=== PATIENT | female | born 1945 | race African-American/Black ===

== ENCOUNTER 2019-04-25 18:35 | Inpatient (IN) | payer MEDICAID, MEDICARE, OTHER ==
[~2019-04-25] VITALS: Ht 167.6 cm; Wt 72.1 kg
--- NOTE | 2019-04-25 18:50 | NUR ---
PT BIBA RA 860 From Home "Behavioral-Was trying to flood apt". Patient denies she was trying to flood the apt. Pt denies SI/HI. Pt endorses hearing voices saying "you are not liked and kill yourself." Pt AAOX4, VSS, Breathing even and unalabored on room air w/ nad. Pt connected to the monitor
--- NOTE | 2019-04-25 20:30 | NUR ---
PT RESTING IN BED, NAD NOTED. WILL CONTINUE TO MONITOR.
[2019-04-25 20:36] LABS: BASOPHILS # (AUTO) 0.1 /CMM (0.0-0.2); BASOPHILS % (AUTO) 0.7 % (0.0-2.0); EOSINOPHILS % (AUTO) 1.5 % (0.0-6.0); HEMATOCRIT 38 % (33-45); HEMOGLOBIN 12.5 g/dL (11.5-14.8); LYMPHOCYTES # (AUTO) 1.6 /CMM (0.8-4.8); LYMPHOCYTES % (AUTO) 16.7 % (20.0-44.0); MEAN CORPUSCULAR HGB CONC 33 g/dl (31.0-36.0); MEAN CORPUSCULAR VOLUME 98 fL (82-100); MONOCYTES # (AUTO) 0.9 /CMM (0.1-1.30); MONOCYTES % (AUTO) 9.9 % (2.0-12.0); NEUTROPHILS # (AUTO) 6.7 /CMM (1.8-8.9); NEUTROPHILS % (AUTO) 71.2 % (43.0-81.0); PLATELET COUNT (AUTO) 236 /CMM (150-450); RED BLOOD CELL COUNT(AUTO) 3.92 MIL/uL (4.0-5.2); WHITE BLOOD COUNT (AUTO) 9.4 K/uL (4.3-11.0)
--- NOTE | 2019-04-25 20:50 | NUR ---
PT AMBULATORY WITH STEADY GAIT, ATTEMPTED TO GIVE URINE. UNABLE TO OBTAIN SAMPLE.
[2019-04-25 21:05] LABS: ALANINE AMINOTRANSFERASE 20 U/L (12-78); ALBUMIN 3.5 g/dL (3.4-5.0); ALCOHOL, BLOOD < 3 mg/dL (0-0); ALKALINE PHOSPHATASE 71 U/L (46-116); ASPARTATE AMINOTRANSFERASE 17 U/L (15-37); BILIRUBIN,DIRECT 0.2 mg/dL (0.0-0.2); BILIRUBIN,TOTAL 0.6 mg/dL (0.2-1.0); CALCIUM, SERUM 10.6 mg/dL (8.5-10.1); CARBON DIOXIDE 27 mmol/L (21-32); CHLORIDE 106 mmol/L (98-107); CREATININE 1.1 mg/dL (0.6-1.3); GLUCOSE 97 mg/dL (74-106); POTASSIUM 3.8 mmol/L (3.5-5.1); SALICYLATE 3.6 mg/dL (2.8-20.0); SODIUM SERUM 141 mmol/L (136-145); UREA NITROGEN, BLOOD 31 mg/dL (7-18)
[2019-04-25 21:13] LABS: ACETAMINOPHEN < 2 ug/ml (10-30)
--- NOTE | 2019-04-25 21:55 | NUR ---
CALLED REFRIGERATING ENGINEER HEAD KALPESH GARCIAMAJAM
--- NOTE | 2019-04-25 22:03 | NUR ---
PT RESTING IN BED, NAD NOTED. WILL CONTINUE TO MONITOR.
[2019-04-25 22:28] LABS: APPEARANCE,URINE CLEAR (CLEAR); BILIRUBIN,URINE NEGATIVE (NEGATIVE); BLOOD, URINE LARGE Ery/uL (NEGATIVE); COLOR,URINE YELLOW (YELLOW); KETONES,URINE NEGATIVE (NEGATIVE); LEUKOCYTE ESTERASE ,URINE NEGATIVE (NEGATIVE); NITRITE, URINE NEGATIVE (NEGATIVE); PH,URINE 5.5 (5.0-8.0); PROTEIN,URINE 30 mg/dl (NEGATIVE); UGLUCOSE NEGATIVE (NEGATIVE); UROBILINOGEN,URINE 0.2 EU/dL (0.2)
[2019-04-25 22:41] LABS: BACTERIA,URINE Few /HPF (None Seen); RBC,URINE 51-80 /HPF (0-2); SQUAMOUS EPITHELIAL CELL,UR Few /HPF (None Seen)
--- NOTE | 2019-04-26 00:48 | NUR ---
RADHA ZAVALA ON WAY TO ASSESS PT.
--- NOTE | 2019-04-26 01:30 | NUR ---
PT RESTING IN BED, NAD NOTED. WILL CONTINUE TO MONITOR.
--- NOTE | 2019-04-26 02:41 | NUR ---
REPORT GIVEN TO KATIE NUNES FOR ANNETTE.
[2019-04-26] MEDS ORDERED: MAG HYDROX/AL HYDROX/SIMETH 30 ML UDC PO PRN (03:30)
[2019-04-26] MEDS ORDERED: MAGNESIUM HYDROXIDE 30 ML UDC PO PRN (03:30)
[2019-04-26] MEDS ORDERED: BLOOD SUGAR DIAGNOSTIC 1 EACH STRIP IN ONE (04:00)
--- NOTE | 2019-04-26 05:11 | NUR ---
GPS DIRECTOR SERVICE NOTES: RECEIVED PATIENT FROM [facility] ER DEPARTMENT. PT ARRIVED ON THIS UNIT AT 0315 VIA WHEELCHAIR ESCORTED BY A NURSE. PATIENT ADMITTED ON A 5150 HOLD FOR DTS AND GD. PER HOLD PT WAS BROUGHT IN BY AMBULANCE AFTER OTHER RESIDENT CALLED 911 DUE TO PT FLOODED HER APARTMENT. UPON FACE TO FACE ASSESSMENT PATIENT NOTED BEING CONFUSED, DISORGANIZED, DEPRESSED, AND COOPERATIVE. PATIENT IS CURRENTLY IN BED AWAKE SINGING TO HERSELF. BREATHING EVEN AND UNLABORED. NO S/S OF PAIN NOTED. PATIENT IS ALERT ORIENTED X1-2. PATIENT DENIES SI/HI AT THIS TIME. PT IS ABLE TO SIGN NECESSARY PAPERWORK AT THIS TIME. PT IS ADVISED OF HER HOLD AND PT HANDBOOK GIVEN. ALL CONTRABAND REMOVED AND STORED IN PT HALLWAY LOCKER. PT SKIN ASSESSMENT COMPLETE. PT ORIENTED TO ROOM, FLOOR, AND STAFF WITH ALL QUESTIONS ANSWERED. EDUCATED PT REGARDING CALL BRIZUELA. PT BED LOCKED, AND LOW. CONTINUE TO MONITOR PT Q15 MIN W/ THE HELP OF STAFF TO MAINTAIN SAFETY
[2019-04-26 05:42] VITALS: BP 145/79
[2019-04-26 08:00] VITALS: BP 134/75
[2019-04-26] MEDS: QUETIAPINE FUMARATE 25 MG TABLET PO SCH ×2 (13:00→16:19)
[2019-04-26 16:00] VITALS: BP 127/73
[2019-04-26] MEDS: TEMAZEPAM 7.5 MG CAPSULE PO PRN (22:15)
--- NOTE | 2019-04-27 05:32 | NUR ---
GPS RN NOTE PT A/O X1-2, CONFUSED, DISORIENTED, COOPERATIVE. SWELLING ON LEFT FOOT, MASS ON LEFT WRIST. SLEPT AFTER TAKING RESTORIL 7.5MG 1 TAB PO. ASSIST WITH AMBULATION. FALL PRECAUTION CONTINUED. BED IN LOWEST POSITION, BED ALARM ON. CALL LIGHT AT ARMS REACH. WILL CONTINUE TO MONITOR FOR MOO, SAFETY AND BEHAVIOR.
[2019-04-27 08:00] VITALS: BP 150/83
[2019-04-27] MEDS: QUETIAPINE FUMARATE 25 MG TABLET PO SCH ×2 (08:17→16:25)
[2019-04-27] MEDS: NICOTINE PATCH (7MG) 7 MG PATCH.TD24 TD SCH (12:50)
--- NOTE | 2019-04-27 15:50 | NUR ---
Family Contact: SW called the pts son, Cholo Marino ([phone]), and an individual answered the phone and stated that the number was wrong.
[2019-04-27 16:00] VITALS: BP 161/93
--- NOTE | 2019-04-27 16:27 | NUR ---
Initial Discharge Plan: Pt currently lives with her son Cholo at the address [address] [place] [id number]. Pts son's number is listed inaccurately. SW will work with the pt and the MD regarding appropriate discharge planning. SW will form a safe and proper discharge.
[2019-04-27 20:52] VITALS: BP 145/77
[2019-04-27] MEDS: TEMAZEPAM 7.5 MG CAPSULE PO PRN (22:05)
[2019-04-28 07:10] LABS: CALCIUM, SERUM 10.8 mg/dL (8.5-10.1); CREATININE 0.9 mg/dL (0.6-1.3); POTASSIUM 4.9 mmol/L (3.5-5.1)
[2019-04-28 07:45] LABS: BASOPHILS % (AUTO) 0.4 % (0.0-2.0); EOSINOPHILS % (AUTO) 1.9 % (0.0-6.0); HEMATOCRIT 40 % (33-45); HEMOGLOBIN 13.1 g/dL (11.5-14.8); LYMPHOCYTES # (AUTO) 1.8 /CMM (0.8-4.8); LYMPHOCYTES % (AUTO) 20.5 % (20.0-44.0); MEAN CORPUSCULAR HGB CONC 33 g/dl (31.0-36.0); MEAN CORPUSCULAR VOLUME 98 fL (82-100); MONOCYTES # (AUTO) 0.8 /CMM (0.1-1.30); NEUTROPHILS # (AUTO) 6.1 /CMM (1.8-8.9); NEUTROPHILS % (AUTO) 68.2 % (43.0-81.0); PLATELET COUNT (AUTO) 243 /CMM (150-450); RED BLOOD CELL COUNT(AUTO) 4.11 MIL/uL (4.0-5.2); WHITE BLOOD COUNT (AUTO) 8.9 K/uL (4.3-11.0)
[2019-04-28 08:00] VITALS: BP 150/93
[2019-04-28] MEDS: QUETIAPINE FUMARATE 25 MG TABLET PO SCH ×2 (08:46→16:45)
[2019-04-28] MEDS: NICOTINE PATCH (7MG) 7 MG PATCH.TD24 TD SCH (09:03)
[2019-04-28 16:00] VITALS: BP 145/99
[2019-04-28 20:02] VITALS: BP 118/63
[2019-04-29] MEDS: clonazePAM 0.5 MG TABLET PO PRN ×2 (03:50→10:46)
[2019-04-29 08:00] VITALS: BP 135/98
[2019-04-29] MEDS: NICOTINE PATCH (7MG) 7 MG PATCH.TD24 TD SCH (08:37)
[2019-04-29] MEDS: QUETIAPINE FUMARATE 25 MG TABLET PO SCH ×2 (08:37→16:59)
[2019-04-29] MEDS: ACETAMINOPHEN 325 MG TABLET PO PRN (10:17)
--- NOTE | 2019-04-29 10:20 | NUR ---
RN NOTE: PT C/O HEADACHE. MEDICATED TYLENOL 650MG PO .
--- NOTE | 2019-04-29 10:20 | NUR ---
UR Note: SALMA called ([phone]) at [facility] and conducted a review on her voicemail requesting additional authorization.
--- NOTE | 2019-04-29 10:46 | NUR ---
RN NOTE: PT'S BP ELEVATED AT 135/98 WITH PULSE OF 75. PT C/O ANXIETY AND MEDICATED WITH CLONAZEPAM 0.5 MG PO.
--- NOTE | 2019-04-29 15:22 | NUR ---
UR Note: ([phone]) at [place] called the SW and asked for additional information regarding the pts clinical. SW presented the information and the briefcase sewer authorized 5 additional days with review due on 05/04/19.
[2019-04-29 16:00] VITALS: BP 119/68
[2019-04-29 20:13] VITALS: BP 127/81
[2019-04-29 20:16] VITALS: BP 127/81
[2019-04-29] MEDS: TEMAZEPAM 7.5 MG CAPSULE PO PRN ×2 (21:32)
--- NOTE | 2019-04-30 | NUR ---
WINE PASTEURIZER NOTES PT SLEEPING COMFORTABLY IN BED AFTER SLEEP MEDICATION GIVEN WITHOUT ANY ACUTE DISTRESS NOTED. KEPT HER WARM AND COMFORTABLE AT ALL TIMES. WILL CONTINUE MONITORING Q 15 MINUTES FOR SAFETY.
--- NOTE | 2019-04-30 06:52 | NUR ---
websphere architect notes pt woke up and started doing her morning routine. no signs of any agitation noted. interact appropriately. asking for some juice. stable rios night and slept well. no signs .sitting on the chair and kept her warm and comfortable at all times. will endorse to am nurse for continuity of care.
--- NOTE | 2019-04-30 07:33 | NUR ---
rn initial notes pt awake out of bed to chair, conversant, compliant, no significant behavioral changes noted at this time. safety ensured. denies pain. will monitor
[2019-04-30 08:00] VITALS: BP 119/95
[2019-04-30] MEDS: NICOTINE PATCH (7MG) 7 MG PATCH.TD24 TD SCH (09:23)
[2019-04-30] MEDS: QUETIAPINE FUMARATE 25 MG TABLET PO SCH ×3 (09:23→16:30)
[2019-04-30] MEDS: ESCITALOPRAM OXALATE (10 MG) 10 MG TABLET PO SCH (12:17)
--- NOTE | 2019-04-30 13:49 | NUR ---
UR Note: Liz ([phone]), [place] upper caser, called the SW and stated that she would like to set up some aftercare appointments for the pt and will call the SW back.
--- NOTE | 2019-04-30 13:51 | NUR ---
UR Note: Sandra ([phone]), [place] manager of case management, contacted the SW and stated that she will be following the pt after she is discharged and would like the SW to pass along her contact information.
--- NOTE | 2019-04-30 14:36 | NUR ---
SS Group Note: SW went to patient's room to invite patient to attend today's support group at 1:00pm regarding holidays sensory activity and gratefulness being held in the activities room. Patient presented laying on her bed sleeping. SW attempted to wake patient but they remained sleeping.
[2019-04-30 16:00] VITALS: BP 166/85
--- NOTE | 2019-04-30 18:43 | NUR ---
RN CLOSING NOTES PT IN HER ROOM, ISOLATIVE MOST OF THE TIME, REFUSED TO PARTICIPATE WITH GROUP ACTIVITIES. COMPLIANT WITH MEDS. DENIES PAIN. NO SIGNIFICANT CHANGE IN BEHAVIOR NOTED. NO SIGNS OF SUICIDAL IDEATION NOTED. WILL ENDORSE TO NEST SHIFT RN FOR CONTINUITY OF CARE IN STABLE CONDITION
[2019-04-30 21:41] VITALS: BP 103/66
[2019-05-01] MEDS: TEMAZEPAM 7.5 MG CAPSULE PO PRN ×2 (01:36→22:43)
[2019-05-01 08:00] VITALS: BP 149/79
[2019-05-01] MEDS: ESCITALOPRAM OXALATE (10 MG) 10 MG TABLET PO SCH (08:37)
[2019-05-01] MEDS: NICOTINE PATCH (7MG) 7 MG PATCH.TD24 TD SCH (08:38)
[2019-05-01] MEDS: QUETIAPINE FUMARATE 25 MG TABLET PO SCH ×3 (08:38→16:32)
--- NOTE | 2019-05-01 14:50 | NUR ---
SS Group Note 05/01/19: SW to invite patient to attend today's support group at 1:00pm regarding Mindfulness in the activities room. Patient refused, stating, I just want to rest sweetheart. SW encouraged patient to attend and informed pt. that it would be a relaxation technique. Pt. refused and SW respected patient's self-determination.
[2019-05-01 16:00] VITALS: BP 101/54
[2019-05-01 20:08] VITALS: BP 140/70
--- NOTE | 2019-05-01 22:46 | NUR ---
PT REQUESTED FOR SLEEP MEDICATION, RESTORIL 7.5 MG ADMINISTERED PO AT [phone]. WILL CONTINUE TO MONITOR.
[2019-05-02 08:00] VITALS: BP 151/80
[2019-05-02] MEDS: NICOTINE PATCH (7MG) 7 MG PATCH.TD24 TD SCH (08:19)
[2019-05-02] MEDS: QUETIAPINE FUMARATE 25 MG TABLET PO SCH ×3 (08:19→18:05)
[2019-05-02] MEDS: ESCITALOPRAM OXALATE (10 MG) 10 MG TABLET PO SCH (08:19)
[2019-05-02 16:00] VITALS: BP 138/76
--- NOTE | 2019-05-02 19:30 | NUR ---
GPS/RN NOTE: AWAKE, ALERT, ORIENTED X2, INITIATES INTERACTION. 2 CRANBERRY JUICE GIVEN PER REQUEST NOW. WILL MONITOR FOR SAFETY AND BEHAVIOR.
[2019-05-02 20:00] VITALS: BP 135/95
[2019-05-02] MEDS: TEMAZEPAM 7.5 MG CAPSULE PO PRN (20:19)
--- NOTE | 2019-05-02 20:19 | NUR ---
GPS/RN NOTE: REQUESTED FOR SLEEPING PILL, RESTORIL 7.5 MG CAP PO GIVEN FOR INSOMNIA.
--- NOTE | 2019-05-03 04:09 | NUR ---
GPS/RN NOTE: TALKING TO SELF, RESPONDING TO INTERNAL STIMULI. PATIENT STATED, " YOU HAVE NOTHING TO DO WITH THAT, I WILL KILL YOU."
[2019-05-03 07:05] LABS: BASOPHILS # (AUTO) 0.1 /CMM (0.0-0.2); BASOPHILS % (AUTO) 0.7 % (0.0-2.0); EOSINOPHILS % (AUTO) 1.7 % (0.0-6.0); HEMATOCRIT 41 % (33-45); HEMOGLOBIN 13.4 g/dL (11.5-14.8); MEAN CORPUSCULAR HGB CONC 33 g/dl (31.0-36.0); MEAN CORPUSCULAR VOLUME 98 fL (82-100); MONOCYTES # (AUTO) 0.9 /CMM (0.1-1.30); MONOCYTES % (AUTO) 10.9 % (2.0-12.0); NEUTROPHILS # (AUTO) 4.8 /CMM (1.8-8.9); NEUTROPHILS % (AUTO) 61.7 % (43.0-81.0); PLATELET COUNT (AUTO) 351 /CMM (150-450); RED BLOOD CELL COUNT(AUTO) 4.21 MIL/uL (4.0-5.2); WHITE BLOOD COUNT (AUTO) 7.8 K/uL (4.3-11.0)
[2019-05-03 07:47] LABS: CALCIUM, SERUM 10.8 mg/dL (8.5-10.1); CREATININE 0.9 mg/dL (0.6-1.3); MAGNESIUM 2.1 mg/dL (1.8-2.4); PHOSPHORUS 3.2 mg/dL (2.5-4.9); POTASSIUM 4.3 mmol/L (3.5-5.1)
[2019-05-03 08:00] VITALS: BP 144/85
[2019-05-03] MEDS: QUETIAPINE FUMARATE 25 MG TABLET PO SCH ×3 (08:15→16:05)
[2019-05-03] MEDS: ESCITALOPRAM OXALATE (10 MG) 10 MG TABLET PO SCH (08:15)
[2019-05-03] MEDS: ACETAMINOPHEN 325 MG TABLET PO PRN (08:21)
[2019-05-03] MEDS: NICOTINE PATCH (7MG) 7 MG PATCH.TD24 TD SCH (08:21)
[2019-05-03 16:00] VITALS: BP 109/64
[2019-05-03 19:51] VITALS: BP 143/78
[2019-05-03] MEDS: TEMAZEPAM 7.5 MG CAPSULE PO PRN (21:36)
--- NOTE | 2019-05-04 06:37 | NUR ---
PT REFUSED PICTURES/SKIN ASSESSMENT
[2019-05-04 08:00] VITALS: BP 140/76
[2019-05-04] MEDS: QUETIAPINE FUMARATE 25 MG TABLET PO SCH ×2 (08:14→12:39)
[2019-05-04] MEDS: ESCITALOPRAM OXALATE (10 MG) 10 MG TABLET PO SCH (08:15)
[2019-05-04] MEDS: NICOTINE PATCH (7MG) 7 MG PATCH.TD24 TD SCH (08:17)
--- NOTE | 2019-05-04 09:00 | NUR ---
Family Contact: SW has asked the pt for the number for her son many times and has spoken to the unit secretaries asking if the pt received any calls from her son. SW was unable to receive a different number and the pt stated that the number listed was accurate. SALMA informed her that she will keep trying that number even though a woman had answered and stated that she did not know who Cholo Marino was.
--- NOTE | 2019-05-04 09:15 | NUR ---
Family Contact: SW called the pts son, Cholo Marino ([phone]), and was unable to make contact. SW left a voicemail stating that the reason for the call was regarding a discharge of a pt and that the SW would like a call back to discuss the details.
--- NOTE | 2019-05-04 10:18 | NUR ---
UR Note: SALMA called Liz ([phone]), [place] manager case management, and left her a voicemail to inform her that the pt is being discharged today and is in need of those aftercare appointments.
--- NOTE | 2019-05-04 13:40 | NUR ---
Family Contact: SW called the pts son, Cholo Marino ([phone]), and left a voicemail stating that the SW did not receive a call back but the unnamed pt had verified her address multiple times and stated how she would get into her apartment. SW stated that she was going to be discharged in about one hour and would like a call back as soon as possible.
--- NOTE | 2019-05-04 14:38 | NUR ---
Discharge Note: Pt was discharged home to [address] [place] [address]. Pt was transported via taxi at 3pm. Pts son Cholo was not contacted due to the inaccurate phone number. Upon discharge, the pt appeared to be in a euthymic mood and presented with a calm affect. Pt denied both suicidal/homicidal ideation as well as auditory/visual hallucinations. Pt was referred to receive psychiatric services at [facility] [place] [address] [place] [address]; ; and a fax of records was sent to: . Pt has an intake appointment set for at 2pm. Pt was also referred to [facility] for health services located at [address] [place] [id number]; .
--- NOTE | 2019-05-04 14:42 | NUR ---
UR Note: SALMA called ([phone]), case technician, at [facility] and conducted a discharge clinical on her voicemail.
[2019-05-04 16:00] VITALS: BP 111/59
--- NOTE | 2019-05-04 16:10 | NUR ---
DIRECTOR OF MARKET INTELLIGENCE NOTE: HOLD DISCONTINUED. PT DISCHARGED HOME TO [address] [place] [id number] VIA [facility]. PT LIVES WITH SON. UNABLE TO CONTACT SON D/T WRONG NUMBER LISTED. PT IN STABLE CONDITION TO DISCHARGE. VS: , 98, 98.0 AND 20. AFFECT IS CALM, COOPERATIVE AND PLEASANT. PT A+OX3. MEDICAL AND PSYCHIATRIC FOLLOW UP INFORMATION GIVEN TO PT ALONG WITH PRESCRIPTIONS. PT VERBALIZED UNDERSTANDING. PT DIAGNOSIS EDUCATION PROVIDED TO PT. HOSPITAL ID BAND REMOVED. PT ESCORTED TO [facility] VIA WHEELCHAIR.
--- NOTE | 2019-05-06 10:04 | NUR ---
[facility] Contact: SW received a call from a [facility] SW ([phone]) who stated that the pt is currently in their hospital because she was found on the streets wandering by the police. Miguel Angel MARSH informed her about all of the details regarding the case and how she asked the pt multiple times and that she went through the notes of the previous admission where the pts sons number was listed and the SW called that number. She stated that she will call the SW back if she has any questions.
--- NOTE | 2019-05-18 15:12 | NUR ---
Substance Abuse Follow Up: Pt was readmitted to inpatient level of care and is therefore excused from the substance abuse follow up.
== END 2019-05-04 16:05 | disposition home or self-care (01) | DRG 885 ==
LOC: ER 18:38 → GPS 04-26 02:28
PROVIDERS: ADMIT Psychiatry & Neurology Psychiatry; ATTEND Nurse Practitioner Acute Care
DX: F29 Unspecified psychosis not due to a substance or known physiological condition (principal); N39.0 Urinary tract infection, site not specified; R45.851 Suicidal ideations; F12.10 Cannabis abuse, uncomplicated; G31.84 Mild cognitive impairment of uncertain or unknown etiology
CPT/HCPCS: 36415; 80048-TC; 80061-TC; 80076-TC; 80305; 81000-TC; 82962-TC; 83735-TC; 84100-TC; 85025-TC; 87086-TC; 97116-TC; 97530-TC; G0480

== ENCOUNTER 2021-01-28 13:48 | Emergency (ER) | payer MEDICARE, OTHER ==
[~2021-01-28] VITALS: Ht 177.8 cm; Wt 79.4 kg
[2021-01-28 14:04] VITALS: BP 154/75
--- NOTE | 2021-01-28 14:20 | NUR ---
PT SEEN AND EXAMINED BY .
[2021-01-28] MEDS ORDERED: KETOROLAC TROMETHAMINE INJ 60 MG/2 ML VIAL IM ONE (14:30)
--- NOTE | 2021-01-28 14:30 | NUR ---
GARMENT MANUFACTURING SUPERVISOR AT BEDSIDE FOR XRAY.
[2021-01-28] MEDS ORDERED: KETOROLAC TROMETHAMINE INJ 30 MG/ML VIAL ONE (14:35)
--- NOTE | 2021-01-28 14:41 | NUR ---
TORADOL 30MG IM GIVEN AT RD.
[2021-01-28] MEDS ORDERED: IBUP-1957 PO (14:53)
--- NOTE | 2021-01-28 15:12 | NUR ---
CALLED PT SENA GOSS FOR PT RECEPTION MANAGER
--- NOTE | 2021-01-28 15:18 | NUR ---
Patient discharged to home in stable condition. Written and verbal after care instructions given. Patient verbalizes understanding of instruction.
== END 2021-01-28 15:18 | disposition home or self-care (01) ==
LOC: ER 14:03
DX: M25.571 Pain in right ankle and joints of right foot (principal); R22.41 Localized swelling, mass and lump, right lower limb; I10 Essential (primary) hypertension
CPT/HCPCS: 73610; 96372; 99283; J1885

== ENCOUNTER 2022-06-29 14:50 | Inpatient (IN) | payer MEDICARE, OTHER ==
[~2022-06-29] VITALS: Ht 172.7 cm; Wt 91.6 kg
[~2022-06-29 14:50] MED LIST: IBUP-1957 PO
--- NOTE | 2022-06-29 15:15 | NUR ---
[id number] for generalized weakness, was at the bank, unable to get out of car tachycardic, and low o2 sats in the field. on 2L via [place] fishing captain. PLACED IN BED, RESPONDING TO VERBAL STIMULI. BREATHING UNLABORED SATURATING AT 94% WITH 2LIT O2 VIA NC.
[2022-06-29] MEDS ORDERED: CEFEPIME 1 GM in IV D5W 50 ML IV ONE (15:30)
[2022-06-29] MEDS ORDERED: IV NS 0.9% 500 ML BAG IV ONE (15:30)
[2022-06-29] MEDS ORDERED: DEXAMETHASONE SOD PHOSPHATE 10 MG/ML VIAL IV ONE (15:30)
--- NOTE | 2022-06-29 15:50 | NUR ---
FIGHTING VEHICLE INFANTRYMAN AT BEDSIDE
--- NOTE | 2022-06-29 16:23 | NUR ---
PATIENT TAKEN TO CT VIA SALBADOR
[2022-06-29] MEDS ORDERED: DEXAMETHASONE SOD PHOSPHATE 10 MG/ML VIAL ONE (16:26)
[2022-06-29 17:13] LABS: LYMPHOCYTES # (AUTO) 0.6 K/uL (0.8-4.8); LYMPHOCYTES % (AUTO) 3.6 % (20.0-44.0); MEAN CORPUSCULAR HGB CONC 32 g/dl (31.0-36.0); MEAN CORPUSCULAR VOLUME 97 fL (82-100); MONOCYTES # (AUTO) 1.5 K/uL (0.1-1.30); MONOCYTES % (AUTO) 8.4 % (2.0-12.0); NEUTROPHILS # (AUTO) 15.7 K/uL (1.8-8.9); RED BLOOD CELL COUNT(AUTO) 6.36 MIL/uL (4.0-5.2); WHITE BLOOD COUNT (AUTO) 17.8 K/uL (4.3-11.0)
[2022-06-29 17:22] LABS: HEMOGLOBIN 19.4 g/dL (11.5-14.8)
[2022-06-29 17:25] LABS: HEMATOCRIT 61 % (33-45)
[2022-06-29 17:28] LABS: ALANINE AMINOTRANSFERASE 29 U/L (12-78); ALBUMIN 3.7 g/dL (3.4-5.0); ALKALINE PHOSPHATASE 73 U/L (46-116); ASPARTATE AMINOTRANSFERASE 42 U/L (15-37); BILIRUBIN,DIRECT 0.3 mg/dL (0.0-0.2); BILIRUBIN,TOTAL 0.8 mg/dL (0.2-1.0); CALCIUM, SERUM 11.3 mg/dL (8.5-10.1); CARBON DIOXIDE 17 mmol/L (21-32); CHLORIDE 91 mmol/L (98-107); CREATININE 2.8 mg/dL (0.6-1.3); GLUCOSE 94 mg/dL (74-106); SODIUM SERUM 133 mmol/L (136-145)
[2022-06-29 17:39] LABS: UREA NITROGEN, BLOOD 88 mg/dL (7-18)
--- NOTE | 2022-06-29 17:56 | NUR ---
URINE SAMPLE SENT TO LAB
[2022-06-29] MEDS ORDERED: IV NS 0.9% 1,000 ML BAG IV ONE (18:00)
[2022-06-29] MEDS ORDERED: PIPERACILLIN /TAZOBACTAM 3.375 G in IV D5W 50 ML IV ONE (18:00)
[2022-06-29 18:20] LABS: BILIRUBIN,URINE 1+ (NEGATIVE); COLOR,URINE YELLOW (YELLOW); LEUKOCYTE ESTERASE ,URINE TRACE (NEGATIVE); NITRITE, URINE NEGATIVE (NEGATIVE); PH,URINE 5.5 (5.0-8.0); PROTEIN,URINE 1+ mg/dl (NEGATIVE); UGLUCOSE NEGATIVE (NEGATIVE)
--- NOTE | 2022-06-29 18:25 | NUR ---
CONTACTED NURSING INNER TUBE CUTTER FOR MIDLINE
[2022-06-29 18:30] LABS: PLATELET COUNT (AUTO) 209 K/uL (150-450)
[2022-06-29 18:32] LABS: BAND % (MANUAL) 6 % (0.0-5.0); LYMPHOCYTES % (MANUAL) 8 % (16-48); MONOCYTES % (MANUAL) 9 % (0-11.0); NEUTROPHILS % (MANUAL) 77 (42-76)
--- NOTE | 2022-06-29 18:33 | NUR ---
DR. MEHTA ON PHONE WITH DR. SU
[2022-06-29 18:41] LABS: BACTERIA,URINE RARE /HPF (None Seen); FINE GRANULAR CASTS,URINE Few /LPF (None Seen); RBC,URINE 51-80 /HPF (0-2); URINE AMORPHOUS URATE Few /HPF (None Seen)
[2022-06-29 18:42] LABS: HYALINE CASTS, URINE Few /LPF (None Seen); MUCUS,URINE Many /LPF (None Seen)
[2022-06-29] MEDS ORDERED: MAGNESIUM HYDROXIDE 30 ML UDC PO PRN (19:30)
[2022-06-29] MEDS ORDERED: ONDANSETRON HCL/PF 4 MG/2 ML VIAL IVP PRN (19:30)
[2022-06-29] MEDS: IV NS 0.9% 1,000 ML IV SCH ×2 (19:30→23:29)
[2022-06-29] MEDS ORDERED: Z GUARD REMEDY 4 OZ OINT TP PRN (19:30)
[2022-06-29] MEDS ORDERED: ACETAMINOPHEN 325 MG TABLET PO PRN (19:30)
[2022-06-29] MEDS: ASPIRIN EC 81 MG TABLET.DR PO SCH ×3 (19:30→23:53)
[2022-06-29] MEDS ORDERED: MAG HYDROX/AL HYDROX/SIMETH 30 ML UDC PO PRN (19:30)
--- NOTE | 2022-06-29 19:43 | NUR ---
covid swab done and sent to lab
--- NOTE | 2022-06-29 20:00 | NUR ---
ASSISTANT PROFESSOR OF CRIMINAL JUSTICE AT PT'S BEDSIDE
--- NOTE | 2022-06-29 21:21 | NUR ---
BED 112-1
--- NOTE | 2022-06-29 21:31 | NUR ---
REPORT GIVEN TO JUDIE NUNES ROOM 112-1 FOR ANNETTE
--- NOTE | 2022-06-29 22:15 | NUR ---
RN OPENING NOTE PT RECEIVED FROM [facility] AND [facility]. PT A&OX1, RESPONSIVE TO NAME AND ABLE TO FOLLOW COMMANDS. SKIN IS COLD TO THE TOUCH AND INTACT. NO WOUNDS NOTED. RESPIRATIONS EVEN AND UNLABORED ON 4 LPM NC. DENIES SOB AND CHEST PAIN. NO IV ACCESS AT THIS TIME. ER STATED THAT AN ORDER FOR ML INSERTION HAS BEEN PLACED. BILAT UPPER EXTREMITIES ARE INFILTRATED FROM PREVIOUS IVS. AFFECTED EXTREMITIES ARE NOW ELEVATED WITH COOL COMPRESS. MACE INTACT AND DRAINING APPROPRIATELY. PT IS POOR HISTORIAN AND STATES THAT HER ONLY MEDICAL HX IS HTN. NO ACUTE SIGNS OF DISTRESS. BED LOCKED AND AT LOWEST LEVEL WITH 2 RAILS UP. CALL LIGHT WITHIN REACH.
[2022-06-29 23:12] VITALS: BP 129/73
--- NOTE | 2022-06-29 23:20 | NUR ---
RN NOTE PROVIDER ATTEMPTED MIDLINE INSERTION BUT UNSUCCESSFUL.
[2022-06-30] VITALS: BP 130/75
--- NOTE | 2022-06-30 00:36 | NUR ---
RN NOTE MULTIPLE IVS ATTEMPTED WITH REACTOR OPERATOR BUT UNSUCCESSFUL. GAS COLLECTION SYSTEM OPERATOR AWARE AND WILL CONTACT MD FOR NEXT COURSE OF ACTION.
[2022-06-30] MEDS: IV NS 0.9% 1,000 ML IV SCH ×3 (00:40→15:12)
--- NOTE | 2022-06-30 00:40 | NUR ---
RN NOTE NOE 24 G IV ESTABLISHED. WILL MONITOR FOR SI/SX OF INFILTRATION.
--- NOTE | 2022-06-30 01:59 | NUR ---
RN NOTE MD INFORMED THAT PT IS LETHARGIC AND DIFFICULT TO AROUSE WITH NO LARGE BORE IV. MD STATED THAT THERE IS NOTHING ELSE TO DO FOR PT. STATES THAT WE CAN CONTACT ED MD FOR IV ACCESS IF NEEDED.
--- NOTE | 2022-06-30 02:16 | NUR ---
RN NOTE PT AROUSABLE TO LIGHT TOUCH. PACS AND PVCS NOTED ON GEOLOGICAL ENGINEERING TEACHER. NS INFUSING AT 100 ML/HR.
[2022-06-30 04:00] VITALS: BP 141/88
--- NOTE | 2022-06-30 07:05 | NUR ---
RN CLOSING NOTE PT SLEEPING BUT AROUSABLE TO LIGHT TOUCH. SKIN IS COOL TO TOUCH. RESPIRATIONS EVEN AND UNLABORED ON 4 LPM NC. NOE 24G INTACT AND INFUSING NS AT 100 ML/HR. MACE INTACT AND DRAINING APPROPRIATELY. NO ACUTE SIGNS OF DISTRESS. BED LOCKED AND AT LOWEST LEVEL WITH 2 RAILS UP. CALL LIGHT WITHIN REACH.
--- NOTE | 2022-06-30 07:29 | NUR ---
OPENING NOTE PATIENT IS RESTING COMFORTABLY IN BED, AWAKE, ALERT, ORIENTEDX1 (NAME), NO SIGNS OF IN DISTRESS, UNLABORED BREATHING ON 02-4L/MIN VIA N/C, BED IN LOW POSITION, CALL LIGHT WITHIN REACH
[2022-06-30] MEDS: ASPIRIN EC 81 MG TABLET.DR PO SCH (07:51)
[2022-06-30 08:00] VITALS: BP 116/75
[2022-06-30] MEDS: CEFTRIAXONE 1 G in IV D5W 50 ML IV SCH (08:51)
[2022-06-30] MEDS ORDERED: ASPI-1420 PO (09:43)
[2022-06-30] MEDS ORDERED: QUET25TA PO (09:43)
[2022-06-30] MEDS ORDERED: DOCU100C58 PO (09:43)
[2022-06-30] MEDS ORDERED: PANT40TA49 PO (09:43)
[2022-06-30] MEDS ORDERED: CARV6.252 PO (09:43)
--- NOTE | 2022-06-30 09:54 | NUR ---
CALLED LAB DEPARTMENT REGARDING CHEMISTRY, THEY SAID, PATIENT IS A HARD STICK, AND THEY WILL SEND SOMEONE ELSE NOW.
[2022-06-30] MEDS: ENSURE ENLIVE CHOC 237 ML CAN PO SCH ×3 (10:06→16:22)
[2022-06-30] MEDS: PANTOPRAZOLE 40 MG TABLET.DR PO SCH (10:43)
[2022-06-30] MEDS: CARVEDILOL 6.25 MG TABLET PO SCH ×2 (10:56→16:22)
[2022-06-30] MEDS ORDERED: ASPIRIN EC 81 MG TABLET.DR PO SCH (11:00)
--- NOTE | 2022-06-30 11:01 | NUR ---
INFORMED DR. CASTANEDA REGARDING K-3.0 FROM YESTERDAY. DRAW BLOOD FROM MIDLINE FOR BLOOD WORK.
--- NOTE | 2022-06-30 11:08 | NUR ---
CALLED CARDIOLOGY DEPARTMENT REGARDING ECHOCARDIOGRAM TODAY BUT NO REPLY.
[2022-06-30 11:11] LABS: BASOPHILS % (AUTO) 0.1 % (0.0-2.0); EOSINOPHILS % (AUTO) 0.1 % (0.0-6.0); HEMATOCRIT 51 % (33-45); HEMOGLOBIN 16.1 g/dL (11.5-14.8); LYMPHOCYTES # (AUTO) 0.7 K/uL (0.8-4.8); LYMPHOCYTES % (AUTO) 4.4 % (20.0-44.0); MEAN CORPUSCULAR HGB CONC 32 g/dl (31.0-36.0); MEAN CORPUSCULAR VOLUME 95 fL (82-100); MONOCYTES # (AUTO) 1.4 K/uL (0.1-1.30); MONOCYTES % (AUTO) 9.1 % (2.0-12.0); NEUTROPHILS # (AUTO) 13.6 K/uL (1.8-8.9); NEUTROPHILS % (AUTO) 86.3 % (43.0-81.0); PLATELET COUNT (AUTO) 178 K/uL (150-450); RED BLOOD CELL COUNT(AUTO) 5.33 MIL/uL (4.0-5.2); WHITE BLOOD COUNT (AUTO) 15.8 K/uL (4.3-11.0)
[2022-06-30] MEDS ORDERED: POTASSIUM CHLORIDE 20 MEQ TAB.PRT.SR PO ONE (11:30)
[2022-06-30 11:37] LABS: CALCIUM, SERUM 9.2 mg/dL (8.5-10.1); CARBON DIOXIDE 30 mmol/L (21-32); CHLORIDE 96 mmol/L (98-107); CREATININE 1.5 mg/dL (0.6-1.3); GLUCOSE 108 mg/dL (74-106); MAGNESIUM 2.3 mg/dL (1.8-2.4); PHOSPHORUS 3.4 mg/dL (2.5-4.9); POTASSIUM 5.3 mmol/L (3.5-5.1); SODIUM SERUM 134 mmol/L (136-145); UREA NITROGEN, BLOOD 68 mg/dL (7-18)
[2022-06-30 11:49] LABS: THYROID STIMULATING HORMONE 0.862 uIU/mL (0.358-3.74)
[2022-06-30 12:00] VITALS: BP 109/71
--- NOTE | 2022-06-30 12:32 | NUR ---
INFORMED DR SU REGARDING K-5.3 TODAY VIA TEXT.
[2022-06-30 14:03] LABS: MAGNESIUM 2.4 mg/dL (1.8-2.4); PHOSPHORUS 3.2 mg/dL (2.5-4.9)
[2022-06-30 16:00] VITALS: BP 108/58
[2022-06-30] MEDS: DOCUSATE SODIUM 100 MG CAPSULE PO SCH (16:21)
--- NOTE | 2022-06-30 17:20 | NUR ---
URINE PROFILE/URINE SODIUM,RANDOM/CREATININE (URINE) COLLECTED.
[2022-06-30 18:22] LABS: CREATININE, URINE 82.9 MG/DL (30.0-125.0)
--- NOTE | 2022-06-30 18:26 | NUR ---
CLOSING NOTE PATIENT IS RESTING COMFATBLE IN BED, NO SIGNS OF IN DISTRESS, NO COMPLAINT OF PAIN, VITAL SIGNS ARE STABLE, MACE CATHETER IN PLACE PATENT, WILLOW MIDLINE IN PLACE TODAY, IV FLUIDS INFUSING WELL, SIDE RAILS UP, BED IN LOW POSITION, CALL LIGHT WITHIN REACH.
--- NOTE | 2022-06-30 19:30 | NUR ---
SHOP WORKER OPENING NOTES RECEIVED PT RESTING IN BED AWAKE, EATING DINNER. ON O2 VIA NC 4L WITH NO SIGNS OF DISTRESS, NO COMPLAINT OF PAIN. MACE CATHETER IN PLACE PATENT. WILLOW MIDLINE PATENT AND INTACT, RUNNING NS @ 100ML/HR. SAFETY PRECAUTION IN PLACE: BED LOCKED AND IN LOWEST POSITION, SIDE RAILS UP X3, CALL LIGHT AND TRAY TABLE WITHIN REACH. WILL CONTINUE TO MONITOR AND ASSIST.
[2022-06-30 20:00] VITALS: BP 124/78
[2022-06-30 20:26] LABS: BILIRUBIN,URINE NEGATIVE (NEGATIVE); COLOR,URINE YELLOW (YELLOW); LEUKOCYTE ESTERASE ,URINE NEGATIVE (NEGATIVE); NITRITE, URINE NEGATIVE (NEGATIVE); PROTEIN,URINE NEGATIVE (NEGATIVE); UGLUCOSE NEGATIVE (NEGATIVE); UROBILINOGEN,URINE 0.2 EU/dL (0.2)
[2022-06-30] MEDS: QUETIAPINE FUMARATE 25 MG TABLET PO SCH (21:36)
[2022-06-30 23:18] LABS: BACTERIA,URINE None seen /HPF (None Seen)
[2022-06-30 23:19] LABS: URIC ACID CRYSTALS,URINE Moderate /HPF (None Seen)
[2022-06-30 23:20] LABS: SQUAMOUS EPITHELIAL CELL,UR None Seen /HPF (None Seen)
[2022-07-01] VITALS: BP 119/79
[2022-07-01] MEDS: IV NS 0.9% 1,000 ML IV SCH ×2 (01:31→10:31)
[2022-07-01 04:00] VITALS: BP 102/66
[2022-07-01 06:06] LABS: EOSINOPHILS % (AUTO) 0.3 % (0.0-6.0); HEMATOCRIT 47 % (33-45); HEMOGLOBIN 15.1 g/dL (11.5-14.8); LYMPHOCYTES % (AUTO) 13.6 % (20.0-44.0); MEAN CORPUSCULAR HGB CONC 32 g/dl (31.0-36.0); MEAN CORPUSCULAR VOLUME 97 fL (82-100); MONOCYTES % (AUTO) 10.4 % (2.0-12.0); NEUTROPHILS % (AUTO) 75.7 % (43.0-81.0); PLATELET COUNT (AUTO) 145 K/uL (150-450); RED BLOOD CELL COUNT(AUTO) 4.87 MIL/uL (4.0-5.2); WHITE BLOOD COUNT (AUTO) 10.7 K/uL (4.3-11.0)
[2022-07-01 06:07] LABS: LYMPHOCYTES # (AUTO) 1.4 K/uL (0.8-4.8); MONOCYTES # (AUTO) 1.1 K/uL (0.1-1.30); NEUTROPHILS # (AUTO) 8.1 K/uL (1.8-8.9)
--- NOTE | 2022-07-01 06:40 | NUR ---
REGIONAL CONSTRUCTION MANAGER CLOSING NOTES PT SLEEPING IN BED AT THIS TIME. A/O X3, ABLE TO MAKE NEEDS KNOWN. STABLE ON O2 VIA NC 3L WITH NO SIGNS OF DISTRESS. NO C/O PAIN AT THIS TIME. ON TELE MONITOR READING SR WITH PAC'S @ 80 BPM. MACE CATHETER DRAINED 400 ML OF CLEAR, YELLOW URINE. WILLOW MIDLINE PATENT AND INTACT, RUNNING NS @ 100 ML/HR. ALL CARE PROVIDED AND MEDS TOLERATED WELL. SAFETY PRECAUTIONS MAINTAINED: BED LOCKED AND IN LOWEST POSITION, SIDE RAILS UP X3, CALL LIGHT AND TRAY TABLE WITHIN REACH. WILL ENDORSE ANNETTE TO DAY SHIFT NURSE.
--- NOTE | 2022-07-01 07:18 | NUR ---
OPENING NOTE PATIENT IS RESTING COMFORTABLY IN BED, AWAKE, ALERT, ORIENTEDX1 (NAME), NO SIGNS OF IN DISTRESS, UNLABORED BREATHING ON 02-3L/MIN VIA N/C, BED IN LOW POSITION, CALL LIGHT WITHIN REACH
[2022-07-01] MEDS: ENSURE ENLIVE CHOC 237 ML CAN PO SCH ×3 (07:39→16:23)
[2022-07-01 08:00] VITALS: BP 121/60
[2022-07-01] MEDS: PANTOPRAZOLE 40 MG TABLET.DR PO SCH (08:23)
[2022-07-01] MEDS: ASPIRIN EC 81 MG TABLET.DR PO SCH (08:23)
[2022-07-01] MEDS: DOCUSATE SODIUM 100 MG CAPSULE PO SCH ×2 (08:24→16:23)
[2022-07-01] MEDS: CARVEDILOL 6.25 MG TABLET PO SCH ×2 (08:24→16:43)
[2022-07-01] MEDS: CEFTRIAXONE 1 G in IV D5W 50 ML IV SCH (08:48)
[2022-07-01 10:51] LABS: ALBUMIN 2.4 g/dL (3.4-5.0); BILIRUBIN,TOTAL 0.5 mg/dL (0.2-1.0); CALCIUM, SERUM 9.5 mg/dL (8.5-10.1); CREATININE 1.3 mg/dL (0.6-1.3); MAGNESIUM 2.3 mg/dL (1.8-2.4); PHOSPHORUS 1.7 mg/dL (2.5-4.9); POTASSIUM 4.3 mmol/L (3.5-5.1); TOTAL PROTEIN, SERUM 5.4 g/dL (6.4-8.2)
[2022-07-01 12:00] VITALS: BP 118/78
[2022-07-01] MEDS ORDERED: Sodium Phosphate 15 MMOL in IV NS 0.9% 245 ML IV SCH (14:00)
[2022-07-01 16:00] VITALS: BP 112/66
--- NOTE | 2022-07-01 18:08 | NUR ---
CLOSING NOTE PATIENT IS RESTING COMFORTABLY IN BED, NO SIGNS OF IN DISTRESS, NO COMPLAINT OF PAIN, VITAL SIGNS ARE STABLE, MACE CATHETER IN PLACE PATENT, WILLOW MIDLINE IN PLACE TODAY, IV FLUIDS INFUSING WELL, SIDE RAILS UP, BED IN LOW POSITION, CALL LIGHT WITHIN REACH.
[2022-07-01 20:00] VITALS: BP 133/74
--- NOTE | 2022-07-01 20:00 | NUR ---
SAFETY INSPECTOR NOTE PT IN BED AWAKE. A/O X 3, NO SOB, NO DISTRESS OR DISCOMFORT NOTED. DENIES PAIN. ON 2L O2 VIA N/C O2 SAT 98%. ON TELE SR HR 80. IVF NS INFUSING AT 100 ML/HR WILLOW MIDLINE. NO S/S OF INFILTRATION NOTED. KEPT HER DRY AND CLEAN. ALL NEEDS ATTENDED. SIDE RAILS UP X 3 AND CALL LIGHT WITHIN REACH. VSS. CONTINUE TO MONITOR HER.
[2022-07-01] MEDS: QUETIAPINE FUMARATE 25 MG TABLET PO SCH (21:44)
[2022-07-02] VITALS: BP 122/64
[2022-07-02] MEDS: IV NS 0.9% 1,000 ML IV SCH ×3 (01:06→14:16)
[2022-07-02 04:00] VITALS: BP 135/59
--- NOTE | 2022-07-02 06:33 | NUR ---
TRIMMER HELPER NOTE PT IN BED ASLEEP, NO DISTRESS OR DISCOMFORT NOTED. DENIES PAIN. IVF NS INFUSING AT 100 ML/HR, NO S/S OF INFILTRATION NOTED. ALL NEEDS ATTENDED. ON TELE SR . SIDE RAILS UP X 2. CALL LIGHT WITHIN REACH. WILL ENDORSE TO DAY SHIFT NURSE FOR CONTINUE TO CARE.
[2022-07-02 08:00] VITALS: BP 124/75
[2022-07-02 08:27] LABS: BASOPHILS % (AUTO) 0.2 % (0.0-2.0); EOSINOPHILS % (AUTO) 1.5 % (0.0-6.0); HEMATOCRIT 46 % (33-45); HEMOGLOBIN 14.6 g/dL (11.5-14.8); LYMPHOCYTES # (AUTO) 2.3 K/uL (0.8-4.8); LYMPHOCYTES % (AUTO) 23.7 % (20.0-44.0); MEAN CORPUSCULAR HGB CONC 32 g/dl (31.0-36.0); MEAN CORPUSCULAR VOLUME 96 fL (82-100); MONOCYTES # (AUTO) 1.1 K/uL (0.1-1.30); MONOCYTES % (AUTO) 11.9 % (2.0-12.0); NEUTROPHILS % (AUTO) 62.7 % (43.0-81.0); PLATELET COUNT (AUTO) 156 K/uL (150-450); RED BLOOD CELL COUNT(AUTO) 4.79 MIL/uL (4.0-5.2); WHITE BLOOD COUNT (AUTO) 9.5 K/uL (4.3-11.0)
[2022-07-02 08:48] LABS: CALCIUM, SERUM 9.9 mg/dL (8.5-10.1); CREATININE 1.1 mg/dL (0.6-1.3); POTASSIUM 3.6 mmol/L (3.5-5.1)
[2022-07-02] MEDS: ENSURE ENLIVE CHOC 237 ML CAN PO SCH ×3 (08:53→16:43)
[2022-07-02] MEDS: DOCUSATE SODIUM 100 MG CAPSULE PO SCH ×2 (08:58→16:35)
[2022-07-02] MEDS: PANTOPRAZOLE 40 MG TABLET.DR PO SCH (08:58)
[2022-07-02] MEDS: CARVEDILOL 6.25 MG TABLET PO SCH ×2 (08:59→16:43)
[2022-07-02] MEDS: ASPIRIN EC 81 MG TABLET.DR PO SCH (09:00)
[2022-07-02] MEDS: CEFTRIAXONE 1 G in IV D5W 50 ML IV SCH (09:10)
[2022-07-02] MEDS: METOPROLOL TARTRATE INJ 5 MG/5 ML AMPUL IVP PRN ×10 (11:30→12:15)
[2022-07-02] MEDS ORDERED: METOPROLOL TARTRATE INJ 5 MG/5 ML AMPUL ONE ×3 (11:52→12:08)
[2022-07-02] MEDS ORDERED: CT SWABBABLE VALVE TRANS SET 1 EA INFUS.SET MC ONE (11:53)
[2022-07-02] MEDS ORDERED: IOHEXOL-350 100 ML VIAL IV ONE (11:53)
[2022-07-02] MEDS ORDERED: IV NS 0.9% 250 ML IV ONE (11:53)
[2022-07-02] MEDS ORDERED: NITROGLYCERIN 0.4 MG/TAB BOTTLE ONE (11:53)
[2022-07-02 12:00] VITALS: BP 109/53
[2022-07-02] MEDS ORDERED: NITROGLYCERIN 0.4 MG/TAB BOTTLE SL ONE (12:00)
[2022-07-02 16:00] VITALS: BP 139/61
--- NOTE | 2022-07-02 18:44 | NUR ---
RN CLOSING NOTE PATIENT SLEEPING IN BED, NO SIGNS OF IN DISTRESS OR SOB NO COMPLAINT OF PAIN, VITAL SIGNS ARE STABLE, MACE CATHETER IN PLACE PATENT, WILLOW MIDLINE IN PLACE TODAY, IV FLUIDS INFUSING WELL, SIDE RAILS UP, BED IN LOW POSITION, CALL LIGHT WITHIN REACH. WILL ENDORSE THE PATIENT TO THE CARRIER DRIVER NURSE FOR ANNETTE.
[2022-07-02 19:42] LABS: BILIRUBIN,URINE NEGATIVE (NEGATIVE); COLOR,URINE YELLOW (YELLOW); LEUKOCYTE ESTERASE ,URINE NEGATIVE (NEGATIVE); NITRITE, URINE NEGATIVE (NEGATIVE); PROTEIN,URINE NEGATIVE (NEGATIVE); UGLUCOSE NEGATIVE (NEGATIVE); UROBILINOGEN,URINE 0.2 EU/dL (0.2)
[2022-07-02 20:00] VITALS: BP 137/75
--- NOTE | 2022-07-02 20:00 | NUR ---
ANODIZER NOTES RECEIVED PT IN BED, ASLEEP, EASILY AROUSABLE. NO SOB, NO DISTRESS NOTED. ON 2L O2 VIA NC, SATURATION 99%. ON TELE MONITOR SR 80. IVF INFUSING NS @75ML/HR ON WILLOW ML, INTACT AND PATENT, NO S/S OF INFILTRATION. NOE #24G IV SITE, SL, INTACT AND PATENT. FC INTACT AND PATENT, DRAINING YELLOW URINE. KEPT DRY AND CLEAN, REPOSITION FOR COMFORT. SAFETY MEASURES IMPLEMENTED, SR UP X3, BED LOCKED AND IN LOWEST POSITION. CALL LIGHT WITHIN REACH. WILL CONT TO MONITOR PT.
[2022-07-02 20:14] LABS: RBC,URINE 21-50 /HPF (0-2); WBC,URINE 0-2 /HPF (0-3)
[2022-07-02 20:15] LABS: BACTERIA,URINE None seen /HPF (None Seen); SQUAMOUS EPITHELIAL CELL,UR 0-2 /HPF (None Seen)
--- NOTE | 2022-07-02 20:41 | NUR ---
TEACHER'S AIDE NOTES PHOS. LEVEL 1.7 INFORMED THE MD. PER MD, PHOS WAS ALREADY ORDERED AND GIVEN ON 07/01/22. ALSO REVERIFIED WITH PHARMACY, MED WAS GIVEN ON 07/01/22 BY DES ALLISON. NNO AT THIS TIME.
[2022-07-02] MEDS: QUETIAPINE FUMARATE 25 MG TABLET PO SCH (21:13)
[2022-07-03] VITALS: BP 143/72
[2022-07-03] MEDS: IV NS 0.9% 1,000 ML IV SCH ×2 (03:24→16:24)
--- NOTE | 2022-07-03 03:24 | NUR ---
TD RN NOTES PT NOTED WITH L BUTTOCK EXCORIATION, PINK IN COLOR, NO S/S OF INFX. RENDERED WITH DD. TURN AND REPOS. PT, KEPT CLEAN AND DRY. WOUND CONSULT ORDERED.
[2022-07-03 04:00] VITALS: BP 120/67
--- NOTE | 2022-07-03 06:30 | NUR ---
WOODEN BOX MAKER NOTES PT IN BED, SLEEPING, EASILY AROUSABLE. NO SOB, NO ACUTE RESP DISTRESS. AFEBRILE. ON O2 2LPM VIA NC, WELL ANISA. ON TELE SR. IVF INFUSING NS @ 75ML/HR ON WILLOW ML. ALL NEEDS MET. ALL DUE MEDICATIONS GIVEN ORDERED. FC IN PLACED, DRAINING YELLOW URINE. SAFETY MEASURES IMPLEMENTED. WILL ENDORSE TO AM NURSE
[2022-07-03 08:00] VITALS: BP 109/57
[2022-07-03] MEDS: ENSURE ENLIVE CHOC 237 ML CAN PO SCH ×3 (08:23→16:53)
[2022-07-03] MEDS: ASPIRIN EC 81 MG TABLET.DR PO SCH (08:24)
[2022-07-03] MEDS: DOCUSATE SODIUM 100 MG CAPSULE PO SCH ×2 (08:24→16:23)
[2022-07-03] MEDS: PANTOPRAZOLE 40 MG TABLET.DR PO SCH (08:24)
[2022-07-03] MEDS: CARVEDILOL 6.25 MG TABLET PO SCH ×2 (08:25→16:23)
[2022-07-03] MEDS: CEFTRIAXONE 1 G in IV D5W 50 ML IV SCH (08:57)
[2022-07-03 12:00] VITALS: BP 110/53
[2022-07-03 16:00] VITALS: BP 126/63
--- NOTE | 2022-07-03 18:46 | NUR ---
RN CLOSING NOTE PATIENT SLEEPING IN BED, NO SIGNS OF IN DISTRESS OR SOB NO COMPLAINT OF PAIN, VITAL SIGNS ARE STABLE, MACE CATHETER IN PLACE PATENT, WILLOW MIDLINE IN PLACE RUNNING NS 75ML/HR INFUSING WELL, SIDE RAILS UP, BED IN LOW POSITION, CALL LIGHT WITHIN REACH. WILL ENDORSE THE PATIENT TO THE PAYROLL CLERK NURSE FOR ANNETTE.
--- NOTE | 2022-07-03 19:10 | NUR ---
noc rn note received patient in bed with eyes closed, easy to arouse. a/ox3. no s/s of apparent distress in 2lpm of o2 via nc. denies pain at this time. IV ns running @75mls/hr. arana draining clear, dark yellow urine. call light within reach. safety in place. will continue with patient's plan of care.
[2022-07-03 20:00] VITALS: BP 114/70
[2022-07-03] MEDS: QUETIAPINE FUMARATE 25 MG TABLET PO SCH (21:43)
[2022-07-04 04:00] VITALS: BP 102/58
[2022-07-04] MEDS: IV NS 0.9% 1,000 ML IV SCH (07:03)
--- NOTE | 2022-07-04 07:03 | NUR ---
noc rn note scheduled IV ns hanged late. bag was still running.
--- NOTE | 2022-07-04 07:08 | NUR ---
noc rn closing note patient in bed with eyes closed, easy to arouse. no s/s of apparent distress on 2lpm of o2 via nc. denies any pain at this time. IV NS running @75mls/hr. all needs attended. all scheduled medications administered. safety in place. will endorse to morning shift rn for continuity of patient care.
--- NOTE | 2022-07-04 07:20 | NUR ---
PULL OVER MACHINE OPERATOR OPENING NOTES Received pt awake in bed AOx3. No complaints of pain or discomfort at this time. Pt is on NC 2L and tolerating it well. IV access on WILLOW midline and NOE 24G SL patent and intact. HOB elevated to pts comfort. Siderails up x2. Call light within reach. Will continue current plan of care.
[2022-07-04] MEDS: ENSURE ENLIVE CHOC 237 ML CAN PO SCH ×3 (08:06→16:41)
[2022-07-04] MEDS: CEFTRIAXONE 1 G in IV D5W 50 ML IV SCH (08:11)
[2022-07-04] MEDS: PANTOPRAZOLE 40 MG TABLET.DR PO SCH (08:15)
[2022-07-04] MEDS: DOCUSATE SODIUM 100 MG CAPSULE PO SCH ×2 (08:15→16:41)
[2022-07-04] MEDS: ASPIRIN EC 81 MG TABLET.DR PO SCH (08:15)
[2022-07-04] MEDS: CARVEDILOL 6.25 MG TABLET PO SCH ×2 (08:15→16:41)
--- NOTE | 2022-07-04 10:23 | NUR ---
LOSS PREVENTION ANALYST NOTES Physical therapy done and pt was able to walk 10 feet. Tolerated PT well.
[2022-07-04] MEDS ORDERED: CEPH250C PO (12:15)
[2022-07-04] MEDS ORDERED: CARV6.252 PO (12:15)
--- NOTE | 2022-07-04 13:10 | NUR ---
FERRIS WHEEL ATTENDANT NOTES Called to [facility] and gave discharge report to Felipa NUNES.
[2022-07-04 16:00] VITALS: BP 128/68
[2022-07-04 16:41] VITALS: BP 128/68
--- NOTE | 2022-07-04 18:22 | NUR ---
PARAPROFESSIONAL AIDE CLOSING NOTES All due meds and tx given as ordered. Pt tolerated everything well. Pt currently on RA and tolerating it well. IV access on LAC 20G SL patent and intact. HOB elevated to pts comfort. Siderails up at all times x2. Call light within reach. Will endorse to oncoming nurse.
--- NOTE | 2022-07-04 18:26 | NUR ---
AVIATION SURVIVAL TECHNICIAN NOTES All due meds and tx given as ordered. Pt tolerated everything well. All needs attended to. Pt is currently on 2L NC and tolerating it well. IV access on NOE 24G and WILLOW ML patent and intact. HOB elevated to pts comfort. Siderails up at all times x2. Call light within reach. Will continue to monitor.
--- NOTE | 2022-07-04 19:07 | NUR ---
TRANSCRIPTION COORDINATOR NOTES [facility] d/t pt no continuing IV ATB. Transferred from [facility] to [facility] safely.
== END 2022-07-04 19:56 | DRG 682 ==
LOC: ER 14:56 → TELE1 21:32 → MEDSG1 07-03 10:04
PROVIDERS: ADMIT Internal Medicine; ATTEND Nurse Practitioner Acute Care
DX: N17.0 Acute kidney failure with tubular necrosis (principal); G93.41 Metabolic encephalopathy; I21.A1 Myocardial infarction type 2; N39.0 Urinary tract infection, site not specified; E87.1 Hypo-osmolality and hyponatremia; E87.20 Acidosis, unspecified; F03.92 Unspecified dementia, unspecified severity, with psychotic disturbance; Z20.822 Contact with and (suspected) exposure to COVID-19; I10 Essential (primary) hypertension; E87.6 Hypokalemia; D75.1 Secondary polycythemia; D75.9 Disease of blood and blood-forming organs, unspecified; F32.A Depression, unspecified; F41.9 Anxiety disorder, unspecified; Z79.899 Other long term (current) drug therapy; Z79.82 Long term (current) use of aspirin; E87.5 Hyperkalemia; E86.0 Dehydration; N28.1 Cyst of kidney, acquired; W19.XXXA Unspecified fall, initial encounter; Y92.9 Unspecified place or not applicable
CPT/HCPCS: 36415; 70450-TC; 71045-TC; 75574; 76770-TC; 80048-TC; 80053-TC; 80061-TC; 80076-TC; 81001; 82533; 82570-TC; 82962-TC; 83605-TC; 83735-TC; 83880; 84100-TC; 84300-TC; 84439-TC; 84443-TC; 84484-TC; 85025-TC; 85730-TC; 87040-TC; 87081-TC; 87086-TC; 93307-TC; 97110-TC; 97112-TC; 97116-TC; 97530-TC; A6403; A9563; G0378; J0692; J0696; J1100; J2543; J3490; J7030; J7040; J7050; J7060; Q9967

== ENCOUNTER 2024-05-11 13:16 | Inpatient (IN) | payer MEDICARE, OTHER ==
[~2024-05-11] VITALS: Ht 172.7 cm; Wt 86.2 kg
[~2024-05-11 13:16] MED LIST changes: +ASPI-1420 PO; +CARV6.252 PO; +CEPH250C PO; +DOCU100C58 PO; -IBUP-1957 PO; +PANT40TA49 PO; +QUET25TA PO
[2024-05-11 15:06] LABS: BASOPHILS % (AUTO) 0.4 % (0.0-2.0); EOSINOPHILS % (AUTO) 0.3 % (0.0-6.0); HEMATOCRIT 50 % (33-45); LYMPHOCYTES # (AUTO) 1.8 K/uL (0.8-4.8); LYMPHOCYTES % (AUTO) 16.6 % (20.0-44.0); MEAN CORPUSCULAR HEMOGLOBIN 31 PG (26.0-33.0); MEAN CORPUSCULAR HGB CONC 32 g/dl (31.0-36.0); MEAN CORPUSCULAR VOLUME 96 fL (82-100); MONOCYTES # (AUTO) 0.9 K/uL (0.1-1.30); MONOCYTES % (AUTO) 7.7 % (2.0-12.0); NEUTROPHILS # (AUTO) 8.4 K/uL (1.8-8.9); PLATELET COUNT (AUTO) 253 K/uL (150-450); RED BLOOD CELL COUNT(AUTO) 5.21 MIL/uL (4.0-5.2); RED CELL DISTRIBUTION WIDTH 14.1 % (11.5-15.0); WHITE BLOOD COUNT (AUTO) 11.1 K/uL (4.3-11.0)
[2024-05-11 15:22] LABS: CALCIUM, SERUM 10.3 mg/dL (8.5-10.1); CARBON DIOXIDE 33 mmol/L (21-32); CHLORIDE 105 mmol/L (98-107); CREATININE 1.2 mg/dL (0.6-1.3); GLUCOSE 101 mg/dL (74-106); POTASSIUM 4.7 mmol/L (3.5-5.1); SODIUM SERUM 140 mmol/L (136-145); UREA NITROGEN, BLOOD 14 mg/dL (7-18)
[2024-05-11 15:23] LABS: INR 0.99 (0.91-1.10); PARTIAL THROMBOPLASTIN TIME 28.5 SEC (24.3-34.3); PROTHROMBIN TIME 10.5 SECS (9.2-11.1)
[2024-05-11 15:28] LABS: APPEARANCE,URINE Clear (CLEAR); BILIRUBIN,URINE Negative (NEGATIVE); BLOOD, URINE Trace-intact Ery/uL (NEGATIVE); COLOR,URINE YELLOW (YELLOW); KETONES,URINE Negative (NEGATIVE); LEUKOCYTE ESTERASE ,URINE Negative (NEGATIVE); NITRITE, URINE Negative (NEGATIVE); PROTEIN,URINE 30 mg/dl (NEGATIVE); UGLUCOSE Negative (NEGATIVE); UROBILINOGEN,URINE 0.2 EU/dL (0.2)
[2024-05-11 15:36] LABS: ALANINE AMINOTRANSFERASE 20 U/L (12-78); ALBUMIN 3.7 g/dL (3.4-5.0); ALKALINE PHOSPHATASE 96 U/L (46-116); ASPARTATE AMINOTRANSFERASE 17 U/L (15-37); BILIRUBIN,DIRECT 0.1 mg/dL (0.0-0.2); BILIRUBIN,TOTAL 0.3 mg/dL (0.2-1.0); NT-PRO BNP 157 pg/mL (0-125); TOTAL PROTEIN, SERUM 7.8 g/dL (6.4-8.2)
[2024-05-11 15:51] LABS: ACETAMINOPHEN 0 ug/ml (10-30); ALCOHOL, BLOOD < 3 mg/dL (0-10); SALICYLATE 3.2 mg/dL (2.8-20.0)
[2024-05-11 16:02] LABS: ADD URINE CULTURE NO; BACTERIA,URINE Few /HPF (None Seen); SQUAMOUS EPITHELIAL CELL,UR Few /HPF (None Seen)
[2024-05-11] MEDS ORDERED: ACET-2605 PO (16:39)
[2024-05-11 17:59] LABS: AMPHETAMINE, URINE NEGATIVE (NEGATIVE); BARBITURATE, URINE NEGATIVE (NEGATIVE); BENZODIAZEPINE, URINE NEGATIVE (NEGATIVE); CANNABINOID, URINE POSITIVE (NEGATIVE); COCCAINE, URINE NEGATIVE (NEGATIVE); OPIATE, URINE NEGATIVE (NEGATIVE); PHENCYCLIDINE SCREEN,URINE NEGATIVE (NEGATIVE)
[2024-05-11] MEDS ORDERED: MAGNESIUM HYDROXIDE 30 ML UDC PO PRN (18:30)
[2024-05-11] MEDS ORDERED: TEMAZEPAM 7.5 MG CAPSULE PO PRN ×2 (18:30)
[2024-05-11] MEDS ORDERED: ACETAMINOPHEN 325 MG TABLET PO PRN (18:30)
[2024-05-11] MEDS ORDERED: LORAZEPAM 0.5 MG TABLET PO PRN ×2 (18:30)
[2024-05-11] MEDS ORDERED: MAG HYDROX/AL HYDROX/SIMETH 30 ML UDC PO PRN (18:30)
[2024-05-11 21:14] VITALS: BP 148/60; TEMP 98.3; O2SAT 95
[2024-05-12 07:40] LABS: CHOLESTEROL 194 mg/dL (<200); HDL CHOLESTEROL 67 mg/dL (40-60); LDL 89 mg/dL (0-99); TRIGLYCERIDES 89 mg/dL (30-150)
[2024-05-12 07:41] LABS: ALANINE AMINOTRANSFERASE 12 U/L (12-78); ALKALINE PHOSPHATASE 88 U/L (46-116); ASPARTATE AMINOTRANSFERASE 14 U/L (15-37); BILIRUBIN,TOTAL 0.5 mg/dL (0.2-1.0); CALCIUM, SERUM 9.8 mg/dL (8.5-10.1); CARBON DIOXIDE 29 mmol/L (21-32); CHLORIDE 106 mmol/L (98-107); CREATININE 1.1 mg/dL (0.6-1.3); GLUCOSE 130 mg/dL (74-106); POTASSIUM 4.4 mmol/L (3.5-5.1); SODIUM SERUM 140 mmol/L (136-145); TOTAL PROTEIN, SERUM 6.8 g/dL (6.4-8.2); UREA NITROGEN, BLOOD 16 mg/dL (7-18)
[2024-05-12 08:00] VITALS: BP 136/72; TEMP 98; O2SAT 98
[2024-05-12] MEDS: SERTRALINE HCL 25 MG TABLET PO SCH (12:57)
[2024-05-12 16:00] VITALS: BP 142/67; TEMP 98.8; O2SAT 98
[2024-05-12 20:42] VITALS: BP 153/91; TEMP 96.8; O2SAT 95
[2024-05-12] MEDS: QUETIAPINE FUMARATE 25 MG TABLET PO SCH (21:36)
[2024-05-13 08:00] VITALS: BP 131/75; TEMP 97.7; O2SAT 96
[2024-05-13 16:00] VITALS: BP 169/91; TEMP 97.9; O2SAT 96
[2024-05-13 20:00] VITALS: BP 154/95; TEMP 97.6; O2SAT 97
[2024-05-13 22:00] VITALS: BP 154/95
[2024-05-14 08:00] VITALS: BP 123/87; TEMP 98.2; O2SAT 99
[2024-05-14 16:00] VITALS: BP 130/83; TEMP 98.4; O2SAT 95
[2024-05-14 20:00] VITALS: BP 143/85; TEMP 98.1; O2SAT 95
[2024-05-15 08:00] VITALS: BP_SYST 117; BP_SYST 128; BP_DIAS 73; BP_DIAS 85; TEMP 98.2; TEMP 98.6; O2SAT 93; O2SAT 98
[2024-05-15] MEDS ORDERED: ATORVASTATIN 40 MG TABLET PO SCH (12:30)
[2024-05-15] MEDS: ASPIRIN 81 MG TAB.CHEW PO SCH (12:53)
[2024-05-15 16:00] VITALS: BP 120/75; TEMP 99.1; O2SAT 94
[2024-05-15 20:00] VITALS: BP 147/75; TEMP 98.7; O2SAT 97
[2024-05-15] MEDS: ATORVASTATIN 40 MG TABLET PO SCH (21:39)
[2024-05-16 08:00] VITALS: BP 129/78; TEMP 98.6; O2SAT 95
[2024-05-16 16:00] VITALS: BP 134/85; TEMP 98.6; O2SAT 92
[2024-05-16 20:44] VITALS: BP 139/84; TEMP 98.2; O2SAT 93
[2024-05-17 07:58] VITALS: BP 142/93; TEMP 97.8; O2SAT 96
[2024-05-17 16:00] VITALS: BP 133/81; TEMP 97.8; O2SAT 94
[2024-05-17 20:43] VITALS: BP 130/82; TEMP 97.8; O2SAT 98
[2024-05-18 08:00] VITALS: BP 146/76; TEMP 98.7; O2SAT 96
[2024-05-18 16:00] VITALS: BP 139/89; TEMP 98.7; O2SAT 96
[2024-05-18 20:44] VITALS: BP 134/71; TEMP 98.4; O2SAT 95
[2024-05-19 08:00] VITALS: BP 118/72; TEMP 98.7; O2SAT 96
[2024-05-19 16:00] VITALS: BP 124/76; TEMP 98.1; O2SAT 96
[2024-05-19 20:49] VITALS: BP 129/86; TEMP 98; O2SAT 96
[2024-05-20 08:00] VITALS: BP 101/75; TEMP 98.5; O2SAT 88
[2024-05-20 16:00] VITALS: BP 133/91; TEMP 98.1; O2SAT 97
[2024-05-20 20:00] VITALS: BP 124/62; TEMP 98.3; O2SAT 97
[2024-05-21 08:00] VITALS: BP 126/90; TEMP 98.1; O2SAT 93
[2024-05-21 16:00] VITALS: BP 133/68; TEMP 98.6; O2SAT 95
[2024-05-21 20:00] VITALS: BP 134/81; TEMP 97.9; O2SAT 100
[2024-05-22 07:41] LABS: BASOPHILS % (AUTO) 0.5 % (0.0-2.0); EOSINOPHILS # (AUTO) 0.1 K/uL (0.0-0.7); EOSINOPHILS % (AUTO) 0.8 % (0.0-6.0); HEMATOCRIT 49 % (33-45); LYMPHOCYTES # (AUTO) 2.2 K/uL (0.8-4.8); LYMPHOCYTES % (AUTO) 22.3 % (20.0-44.0); MEAN CORPUSCULAR HEMOGLOBIN 31 PG (26.0-33.0); MEAN CORPUSCULAR HGB CONC 33 g/dl (31.0-36.0); MEAN CORPUSCULAR VOLUME 95 fL (82-100); MONOCYTES # (AUTO) 0.8 K/uL (0.1-1.30); NEUTROPHILS # (AUTO) 6.7 K/uL (1.8-8.9); NEUTROPHILS % (AUTO) 68.4 % (43.0-81.0); PLATELET COUNT (AUTO) 205 K/uL (150-450); RED BLOOD CELL COUNT(AUTO) 5.18 MIL/uL (4.0-5.2); WHITE BLOOD COUNT (AUTO) 9.8 K/uL (4.3-11.0)
[2024-05-22 08:00] VITALS: BP 135/90; TEMP 97.7; O2SAT 96
[2024-05-22 08:04] LABS: CALCIUM, SERUM 10.6 mg/dL (8.5-10.1); CARBON DIOXIDE 27 mmol/L (21-32); CHLORIDE 107 mmol/L (98-107); CREATININE 1.1 mg/dL (0.6-1.3); GLUCOSE 96 mg/dL (74-106); POTASSIUM 4.7 mmol/L (3.5-5.1); SODIUM SERUM 141 mmol/L (136-145); UREA NITROGEN, BLOOD 22 mg/dL (7-18)
[2024-05-22] MEDS: ENSURE ENLIVE CHOC 237 ML CAN PO SCH (08:36)
[2024-05-22 16:00] VITALS: BP 122/80; TEMP 98.4; O2SAT 96
[2024-05-22 20:00] VITALS: BP 107/66; TEMP 98.3; O2SAT 96
[2024-05-23 08:00] VITALS: BP 135/69; TEMP 97.8; O2SAT 98
[2024-05-23 16:00] VITALS: BP 132/80; TEMP 97.8; O2SAT 94
[2024-05-23 20:26] VITALS: BP 102/60; TEMP 97.8; O2SAT 94
[2024-05-24 08:00] VITALS: BP 130/75; TEMP 97.9; O2SAT 93
[2024-05-24 15:50] VITALS: BP 128/66; TEMP 97.8; O2SAT 95
[2024-05-24 20:35] VITALS: BP 137/86; TEMP 97.9; O2SAT 98
[2024-05-25 08:00] VITALS: BP 123/76; TEMP 98.7; O2SAT 98
[2024-05-25 16:00] VITALS: BP 111/82; TEMP 98.9; O2SAT 98
[2024-05-25 21:13] VITALS: BP 153/84; TEMP 98.2; O2SAT 97
[2024-05-26 08:00] VITALS: BP 120/69; TEMP 97.7; O2SAT 96
[2024-05-26 16:00] VITALS: BP 112/70; TEMP 97.9; O2SAT 96
[2024-05-27 08:00] VITALS: BP 122/72; TEMP 97.9; O2SAT 93
[2024-05-27 16:00] VITALS: BP 124/70; TEMP 98.6; O2SAT 92
[2024-05-27 20:00] VITALS: BP 102/51; TEMP 98.3; O2SAT 95
[2024-05-28 08:00] VITALS: BP 121/73; TEMP 98.6; O2SAT 95
[2024-05-28 16:28] VITALS: BP_SYST 110; BP_SYST 121; BP_DIAS 59; BP_DIAS 73; TEMP 97.7; O2SAT 98
[2024-05-28 20:00] VITALS: BP 103/60; TEMP 98.4; O2SAT 97
[2024-05-29 08:00] VITALS: BP 141/83; TEMP 97.9; O2SAT 97
[2024-05-29] MEDS: QUETIAPINE FUMARATE 25 MG TABLET PO SCH (08:36)
[2024-05-29] MEDS: LORAZEPAM 0.5 MG TABLET PO ONE (13:54)
== END 2024-05-29 14:30 | DRG 885 ==
LOC: ER 13:22 → GPS 18:24
PROVIDERS: ADMIT Psychiatry & Neurology Psychosomatic Medicine; ATTEND Nurse Practitioner Acute Care
DX: F20.9 Schizophrenia, unspecified (principal); I11.0 Hypertensive heart disease with heart failure; F29 Unspecified psychosis not due to a substance or known physiological condition; E78.5 Hyperlipidemia, unspecified; I50.9 Heart failure, unspecified; E66.9 Obesity, unspecified; Z20.822 Contact with and (suspected) exposure to COVID-19; I25.10 Atherosclerotic heart disease of native coronary artery without angina pectoris; Z73.6 Limitation of activities due to disability; Z68.28 Body mass index [BMI] 28.0-28.9, adult; F32.A Depression, unspecified; Z86.73 Personal history of transient ischemic attack (TIA), and cerebral infarction without residual deficits; F03.90 Unspecified dementia, unspecified severity, without behavioral disturbance, psychotic disturbance, mood disturbance, and anxiety; F12.90 Cannabis use, unspecified, uncomplicated
CPT/HCPCS: 36415; 70450-TC; 71045-TC; 80048-TC; 80053-TC; 80061-TC; 80076-TC; 81001; 82565-TC; 82962-TC; 83880; 84484-TC; 85025-TC; 85730-TC; 87086-TC; 97110-TC; 97116-TC; 97530-TC; G0480